=== PATIENT | female | born 1955 | race Caucasian/White ===

== ENCOUNTER → 2017-03-16 13:52 | Outpatient (CLI) | payer BC | END | disposition home or self-care (01) | LOC: D.RAD 13:00 | DX: R13.12 Dysphagia, oropharyngeal phase (principal) ==

== ENCOUNTER → 2018-01-07 11:44 | Outpatient (CLI) | payer BC ==
[2018-01-07 12:11] LABS: CREATININE - SERUM 0.8 mg/dL (0.6-1.3)
== END | disposition home or self-care (01) ==
LOC: D.LABREF 11:44
PROVIDERS: Surgery
DX: L02.415 Cutaneous abscess of right lower limb (principal)

== ENCOUNTER → 2018-01-11 20:33 | Outpatient (CLI) | payer BC ==
[2018-01-11 22:24] LABS: CREATININE - SERUM 0.9 mg/dL (0.6-1.3); VANCOMYCIN - TROUGH 22.7 ug/mL (10.0-20.0)
== END | disposition home or self-care (01) ==
LOC: D.LABREF 20:33
PROVIDERS: Surgery
DX: L02.415 Cutaneous abscess of right lower limb (principal)

== ENCOUNTER → 2018-01-18 11:33 | Outpatient (CLI) | payer BC ==
[2018-01-18 12:24] LABS: CREATININE - SERUM 0.8 mg/dL (0.6-1.3); VANCOMYCIN - TROUGH 15.9 ug/mL (10.0-20.0)
== END | disposition home or self-care (01) ==
LOC: D.LABREF 11:33
PROVIDERS: Surgery
DX: L02.415 Cutaneous abscess of right lower limb (principal)

== ENCOUNTER → 2018-01-26 10:29 | Outpatient (CLI) | payer BC ==
[2018-01-26 11:54] LABS: CREATININE - SERUM 0.7 mg/dL (0.6-1.3); VANCOMYCIN - TROUGH 8.9 ug/mL (10.0-20.0)
== END | disposition home or self-care (01) ==
LOC: D.LAB 10:29
DX: L02.415 Cutaneous abscess of right lower limb (principal)

== ENCOUNTER → 2018-02-02 10:39 | Outpatient (CLI) | payer BC ==
[2018-02-02 12:39] LABS: CREATININE - SERUM 0.8 mg/dL (0.6-1.3); VANCOMYCIN - TROUGH 16.4 ug/mL (10.0-20.0)
== END | disposition home or self-care (01) ==
LOC: D.LABREF 10:39
PROVIDERS: Surgery
DX: L02.415 Cutaneous abscess of right lower limb (principal)

== ENCOUNTER → 2018-02-08 14:25 | Outpatient (CLI) | payer BC ==
[2018-02-08 14:53] LABS: CREATININE - SERUM 0.7 mg/dL (0.6-1.3); VANCOMYCIN - TROUGH 16.1 ug/mL (10.0-20.0)
== END | disposition home or self-care (01) ==
LOC: D.LABREF 14:25
PROVIDERS: Surgery
DX: L02.415 Cutaneous abscess of right lower limb (principal)

== ENCOUNTER → 2018-02-17 12:58 | Outpatient (CLI) | payer BC ==
[2018-02-17 14:35] LABS: CREATININE - SERUM 0.8 mg/dL (0.6-1.3); VANCOMYCIN - TROUGH 9.8 ug/mL (10.0-20.0)
== END | disposition home or self-care (01) ==
LOC: D.LABREF 12:58
PROVIDERS: Surgery
DX: L02.415 Cutaneous abscess of right lower limb (principal)

== ENCOUNTER → 2018-02-25 13:51 | Outpatient (CLI) | payer BC ==
[2018-02-25 14:46] LABS: CREATININE - SERUM 0.8 mg/dL (0.6-1.3); VANCOMYCIN - TROUGH 17.3 ug/mL (10.0-20.0)
== END | disposition home or self-care (01) ==
LOC: D.LABREF 13:51
PROVIDERS: Surgery
DX: L02.415 Cutaneous abscess of right lower limb (principal)

== ENCOUNTER → 2018-03-16 11:37 | Outpatient (CLI) | payer BC ==
[2018-03-16 11:41] LABS: CREATININE - SERUM 0.9 mg/dL (0.6-1.3); VANCOMYCIN - TROUGH 21.1 ug/mL (10.0-20.0)
== END | disposition home or self-care (01) ==
LOC: D.LABREF 11:37
PROVIDERS: Surgery
DX: L02.415 Cutaneous abscess of right lower limb (principal); T81.89XS Other complications of procedures, not elsewhere classified, sequela